=== PATIENT | male | born 1970 | race Caucasian/White ===

== ENCOUNTER 2019-08-26 21:09 | Observation (INO) | payer MEDICARE, OTHER ==
[~2019-08-26] VITALS: Ht 177.8 cm; Wt 121.4 kg
--- OUTSIDE RECORDS SUMMARY | ~2019-08-26 | XMS | Encounter Summary ---
Demographics + + + | Address | [address] | | | [place] [address] | + + + | Home Phone | | + + + | Preferred Language | Unknown | + + + | Marital Status | Single | + + + | Buddhism Affiliation | Unknown | + + + | Race | White | + + + | Ethnic Group | Not or | + + + Author + + + | Author | [facility] | + + + | Organization | [facility] | + + + | Address | Unknown | + + + | Phone | Unavailable | + + + Support + + + + + | Name | Relationship | Address | Phone | + + + + + | Janusz Perez | ECON | UNKNOWN | | | | | [place] [address] | | + + + + + Care Team Providers + +------+ + | Care Sap Data Architect Name | Role | Phone | + +------+ + PCP | Unavailable | + +------+ + Encounter Details +--------+ + + + + | Date | Type | Department | Care Team | Description | +--------+ + + + + | 01/22/ | Office | General Internal | Note, Outpatient | Progress Note | | 1996 | Visit-Trans | Medicine [address] | Clinic | | | | cribed | [address] | | | | | | Mailcode: [id number] | | | | | | Outpatient Clinic | | | | | | [facility], [address] | | | | | | [place], [place] | | | | | | [address] | | | | | | [phone] | | | +--------+ + + + + Social History + +-------+ +--------+------+ | Tobacco Use | Types | Packs/Day | Years | Date | | | | | Used | | + +-------+ +--------+------+ | Never Assessed | | | | | + +-------+ +--------+------+ + + + | Sex Assigned at | Date Recorded | | | | + + + | Not on file | | + + + + + + + | Job Start Date | Occupation | Industry | + + + + | Not on file | Not on file | Not on file | + + + + + + + + | Travel History | Travel Start | Travel End | + + + + + + | No recent travel history available. | + + documented as of this encounter Progress Notes Interface, Ios Developer In - 06/19/2006 5:08 AM PST CLINIC DATE: 01/22/97 Ricky is a patient from [place] who was injured in a rodeo in [place] 1 weeks ago. He said that he was bucked off a horse and landed on his left shoulder. He has had pain since that time. Apparently he was seen at a hospital where x-rays were taken showing a Grade III AC joint separation. He wanted to have a second opinion, and has come here. He says his pain is improving, but he still is painful and doesn't like the cosmetic appearance. He says his strength is decreased. He claims he has had a previous injury to this shoulder, and also dislocated but popped it in himself. He said he refused treatment at the [place] from the doctor at the rodeo, and went immediately to the hospital. PHYSICAL EXAMINATION: Forward flexion is 140 actively, abduction is 120, internal rotation is just above his belt, external rotation is 75 degrees. He has negative apprehension sign, negative Sulcus sign. He has an obvious Grade III AC joint separation. He is tender to palpation over the distal clavicle, and his strength is somewhat diminished secondary to pain. X-RAYS: We took new x-rays today. He has a Grade III AC joint separation as compared to the right side. IMPRESSION: Left Grade III AC joint separation. PLAN: I advised Ricky, since he is almost two weeks out and improving rapidly, to just see how he does here over the next month. I will see him back in one month. If he still wants to have surgery, I would recommend a De León-Rosenbaum procedure. Ricky says he is leaning in that direction. He is right hand dominant, but does a lot of heavy work, and doesn't plan to give up rodeo anytime soon, and feels he wants to have this done in the future. Ulisses Cruz M.D. Adjunct Automotive Assembler, Department of Orthopaedics and Rehabilitation LAURYN/shawnee P cc: Surgery Scheduling documented in this encounter Plan of Treatment Not on filedocumented as of this encounter Visit Diagnoses Not on filedocumented in this encounter"
--- OUTSIDE RECORDS SUMMARY | ~2019-08-26 | XMS | Encounter Summary ---
Demographics + + + | Address | [address] | | | [place] [address] | + + + | Home Phone | | + + + | Preferred Language | Unknown | + + + | Marital Status | Single | + + + | Sabianism Affiliation | Unknown | + + + | Race | Unknown | + + + | Ethnic Group | Unknown | + + + Author + + + | Author | [facility] | | | and [facility] | + + + | Organization | [facility] | | | and [place] | + + + | Address | Unknown | + + + | Phone | Unavailable | + + + Care Team Providers + +------+ + | Care Work Checker Name | Role | Phone | + +------+ + PCP | Unavailable | + +------+ + Encounter Details +--------+ + + + + | Date | Type | Department | Care Team | Description | +--------+ + + + + | 01/13/ | Hospital | [facility] | Sharonda Sharma MD | Unspecified Disorder | | 2008 - | Encounter | [address] | [address] | [address] | | | | [address] | [place] [address] | | | 01/20/ | | [place], [place] | [phone] | | | 2008 | | [address] | | | | | | [phone] | | | +--------+ + + + [...] + + documented as of this encounter Plan of Treatment Not on filedocumented as of this encounter Visit Diagnoses + + | Diagnosis | + + | Unspecified disorder of esophagus | + + documented in this encounter"
--- OUTSIDE RECORDS SUMMARY | ~2019-08-26 | XMS | Clinical Summary ---
Demographics + + + | Address | [address] | | | [place] [address] | + + + | Home Phone | | + + + | Preferred Language | Unknown | + + + | Marital Status | Single | + + + | Anglican Affiliation | Unknown | + + + | Race | Unknown | + + + | Ethnic Group | Unknown | + + + Author + + + | Author | [facility] (Historical as of | | | 12-16-18) | + + + | Organization | [facility] (Historical as of | | | 12-16-18) | + + + | Address | Unknown | + + + | Phone | Unavailable | + + + Support +--------+ +---------+ + | Name | Relationship | Address | Phone | +--------+ +---------+ + | One,No | ECON | Unknown | Unavailable | +--------+ +---------+ + Care Team Providers + +------+ + | Care Coin Machine Assembler Name | Role | Phone | + +------+ + | Dr. Brant | PP | Unavailable | + +------+ + Allergies Not on File Current Medications Not on file Active Problems Not on file Social History + +-------+ +--------+------+ | Tobacco [...] on file | | + + + Plan of Treatment Not on file Results Not on filefrom Last 3 Months"
--- OUTSIDE RECORDS SUMMARY | ~2019-08-26 | XMS | Encounter Summary ---
Demographics + + + | Address | [address] | | | [place] [address] | + + + | Home Phone | | + + + | Preferred Language | Unknown | + + + | Marital Status | Single | + + + | Zoroastrianism Affiliation | Unknown | + + + | Race | White | + + + | Ethnic Group | Not or | + + + Author + + + | Author | [facility] | + + + | Organization | [facility] | + + + | Address | Unknown | + + + | Phone | Unavailable | + + + Support + + + + + | Name | Relationship | Address | Phone | + + + + + | Janusz Perez | ECON | UNKNOWN | | | | | [place] [address] | | + + + + + Care Team Providers + +------+ + | Care Insurance Agent Name | Role | Phone | + +------+ + PCP | Unavailable | + +------+ + Encounter Details +--------+ + + + + | Date | Type | Department | Care Team | Description | +--------+ + + + + | 01/21/ | ED Progress | Emergency Medicine | Report, Emergency | ED Progress Note | | 1996 | | [address] | Services | | | | Note-Transc | [address] | | | | | [place] | [place], [place] | | | | | | [address] | | | +--------+ + + + [...]
--- OUTSIDE RECORDS SUMMARY | ~2019-08-26 | XMS | Encounter Summary ---
Demographics + + + | Address | [address] | | | [place] [address] | + + + | Home Phone | | + + + | Preferred Language | Unknown | + + + | Marital Status | Single | + + + | Jew Affiliation | Unknown | + + + | Race | White | + + + | Ethnic Group | Not or | + + + Author + + + | Author | [facility] | + + + | Organization | [facility] | + + + | Address | Unknown | + + + | Phone | Unavailable | + + + Support + + + + + | Name | Relationship | Address | Phone | + + + + + | Janusz Perez | ECON | UNKNOWN | | | | | [place] [address] | | + + + + + Care Team Providers + +------+ + | Care Cheese Tester Name | Role | Phone | + +------+ + PCP | Unavailable | + +------+ + Encounter Details +--------+ + + + + | Date | Type | Department | Care Team | Description | +--------+ + + + + | 01/21/ | Results | Emergency Medicine | Celio Cabral MD | | | 1996 | Only | [address] | [address] | | | | | [address] | [facility] | | | | | [place], [place] | [place], [place] | | | | | [address] | [address] | | | | | | [phone] | | | | | | | | +--------+ + + + [...] Not on filedocumented as of this encounter Procedures + +--------+ + + + | Procedure Name | Priori | Date/Time | Associated Diagnosis | Comments | | | ty | | | | + +--------+ + + + | SHOULDER, 3 VIEWS | Urgent | 01/21/1997 | | Results for this | | | | 7:25 PM | | procedure are in the | | | | PDT | | results section. | + +--------+ + + + documented in this encounter Results SHOULDER, 3 VIEWS (01/21/1997 7:25 PM PDT) + + + + + + | Component | Value | Ref Range | Performed | Pathologist | | | | | At | Signature | + + + + + + | SHOULDER, 3 | Radiologist 1: CATHY, | | | | | VIEWS | Cristo MORATAYA-Radiologist | | | | | | 2: HOOD MORGAN, | | | | | | RICKY HENRY | | | | | | | | | | | | | | | | | | [id number] LEFT | | | | | | SHOULDER, 3 VIEWS: | | | | | | 01/21/97 at 1925 hrs | | | | | | Dictated: 01/22/97 No | | | | | | previous films are | | | | | | available for | | | | | | comparison. FINDINGS: | | | | | | There is approximately | | | | | | one-half shaft width | | | | | | superiordisplacement of | | | | | | the distal clavicle | | | | | | relative to the acromion | | | | | | process.The | | | | | | coracoclavicular | | | | | | distance measures 16 mm. | | | | | | No fractures | | | | | | areidentified. The | | | | | | glenohumeral joint is | | | | | | maintained. IMPRESSION: | | | | | | Acromioclavicular and | | | | | | probable | | | | | | coracoclavicular | | | | | | separation. END OF | | | | | | IMPRESSION: | | | | + + + + + + + + | Specimen | + + | | + + + +---------+ + + | Performing | Address | City/State/Zipcode | Phone Number | | Organization | | | | + +---------+ + + | [facility] | | | | | [facility] | | | | + +---------+ + + documented in this encounter Visit Diagnoses Not on filedocumented in this encounter"
--- OUTSIDE RECORDS SUMMARY | ~2019-08-26 | XMS | Encounter Summary ---
Demographics + + + | Address | [address] | | | [place] [address] | + + + | Home Phone | | + + + | Preferred Language | Unknown | + + + | Marital Status | Single | + + + | Sabianism Affiliation | Unknown | + + + | Race | Unknown | + + + | Ethnic Group | Unknown | + + + Author + + + | Author | [facility] | | | and [facility] | + + + | Organization | [facility] | | | and [place] | + + + | Address | Unknown | + + + | Phone | Unavailable | + + + Care Team Providers + +------+ + | Care Business Services Clerk Name | Role | Phone | + +------+ + PCP | Unavailable | + +------+ + Encounter Details +--------+ + + + + | Date | Type | Department | Care Team | Description | +--------+ + + + + | 01/13/ | Hospital | [facility] | Sharonda Sharma MD | Unspecified Disorder | | 2008 - | Encounter | [address]VERSION [address] | [address] | [address] | | | | [address] | [place] [address] | | | 01/20/ | | [place], [place] | [phone] | | | 2008 | | [address] | | | | | | [phone] | | | +--------+ + + + [...]
--- OUTSIDE RECORDS SUMMARY | ~2019-08-26 | XMS | Encounter Summary ---
Demographics + + + | Address | [address] | | | [place] [address] | + + + | Home Phone | | + + + | Preferred Language | Unknown | + + + | Marital Status | Single | + + + | Catholic Affiliation | Unknown | + + + | Race | White | + + + | Ethnic Group | Not or | + + + Author + + + | Organization | Unknown | + + + | Address | Unknown | + + + | Phone | Unavailable | + + + Support + + + + + | Name | Relationship | Address | Phone | + + + + + | Janusz Perez | ECON | UNKNOWN | | | | | [place] [address] | | + + + + + Care Team Providers + +------+ + | Care Hydraulic Spinner Name | Role | Phone | + +------+ + PCP | Unavailable | + +------+ + Encounter Details +--------+ + + + + | Date | Type | Department | Care Team | Description | +--------+ + + + + | 01/22/ | Results | | Other, Faculty | | | 1996 | Only | | [phone] | | +--------+ + + + + [...] | + +--------+ + + + | X-RAY BILAT AC | Routin | 01/22/1997 | | Results for this | | JOINTS WWO WEIGHTS | e | 3:35 PM | | procedure are in the | | | | PDT | | results section. | + +--------+ + + + documented in this encounter Results AC JOINTS BILAT W WT DISTRACT (01/22/1997 3:35 PM PDT) + + + + + + | Component | Value | Ref Range | Performed | Pathologist | | | | | At | Signature | + + + + + + | BILAT AC | Radiologist 1: HEATH, | | | | | JOINTS WWO | Cristo DORAN, | | | | | WEIGHTS | RICKY E | | | | | | | | | | | | | | | | | | AP VIEWS OF | | | | | | THE ACROMIOCLAVICULAR | | | | | | JOINT WITH AND WITHOUT | | | | | | WEIGHTBEARING: | | | | | | 01/22/97 AT 1535 HOURS | | | | | | Dictated: 01/24/97 | | | | | | COMPARISON: There are | | | | | | no prior studies | | | | | | available for | | | | | | comparison. FINDINGS: | | | | | | There is separation of | | | | | | the left | | | | | | acromioclavicular | | | | | | jointwith superior | | | | | | displacement of the | | | | | | distal clavicle. There | | | | | | is nosignificant | | | | | | difference between | | | | | | weight and non-weight | | | | | | bearing views.The | | | | | | glenohumeral joint is | | | | | | maintained and there are | | | | | | no fractures. The right | | | | | | acromioclavicular joint | | | | | | is maintained with no | | | | | | evidence ofseparation on | | | | | | weight bearing. The | | | | | | glenohumeral joint is | | | | | | unremarkableand there | | | | | | are no fractures. | | | | | | IMPRESSION: Left | | | | | | acromioclavicular joint | | | | | | separation. Normal | | | | | | rightacromioclavicular | | | | | | joint. END OF | | | | | | IMPRESSION: | | | | + + + + + + + + | Specimen | + + | | + + + + + | Narrative | Performed At | + + + | Ordered mary GILMAN | | + + + + +---------+ + + | Performing | Address | City/State/Zipcode | Phone Number | | Organization | | | | + +---------+ + + | [facility] | | | | | RADIOLOGY | | | | + +---------+ + + documented in this encounter Visit Diagnoses Not on filedocumented in this encounter"
--- OUTSIDE RECORDS SUMMARY | ~2019-08-26 | XMS | Clinical Summary ---
Demographics + + + | Address | [address] | | | [place] [address] | + + + | Home Phone | | + + + | Preferred Language | Unknown | + + + | Marital Status | Single | + + + | Jain Affiliation | Unknown | + + + | Race | Unknown | + + + | Ethnic Group | Unknown | + + + Author + + + | Author | [facility] | | | and [facility] | + + + | Organization | [facility] | | | and [place] | + + + | Address | Unknown | + + + | Phone | Unavailable | + + + Care Team Providers + +------+ + | Care Legal Instructor Name | Role | Phone | + +------+ + PCP | Unavailable | + +------+ + Allergies Not on File Medications Not on file Active Problems Not [...] recent travel history available. | + + Last Filed Vital Signs Not on file Plan of Treatment + + + + + | Health Maintenance | Due Date | Last Done | Comments | + + + + + | Vaccine: | | | | | Dtap/Tdap/Td (1 - | 3 | | | | Tdap) | | | | + + + + + | Vaccine: Influenza | | | | | (Season Ended) | 0 | | | + + + + + Results Not on filefrom Last 3 Months"
--- OUTSIDE RECORDS SUMMARY | ~2019-08-26 | XMS | Encounter Summary ---
Demographics + + + | Address | [address] | | | [place] [address] | + + + | Home Phone | | + + + | Preferred Language | Unknown | + + + | Marital Status | Single | + + + | Moravian Affiliation | Unknown | + + + | Race | Unknown | + + + | Ethnic Group | Unknown | + + + Author + + + | Author | [facility] | | | and [facility] | + + + | Organization | [facility] | | | and [place] | + + + | Address | Unknown | + + + | Phone | Unavailable | + + + Care Team Providers + +------+ + | Care Pattern And Chain Maker Name | Role | Phone | + +------+ + PCP | Unavailable | + +------+ + Encounter Details +--------+ + + + + | Date | Type | Department | Care Team | Description | +--------+ + + + + | 01/13/ | Hospital | [facility] | Sharonda Sharma MD | Unspecified Disorder | | 2008 - | Encounter | [address]VERSION [address] | [address] | [address] | | | | [address] | [place] [address] | | | 01/20/ | | [place], [place] | [phone] | | | 2008 | | [address] | | | | | | [phone] | | | +--------+ + + + [...]
--- OUTSIDE RECORDS SUMMARY | ~2019-08-26 | XMS | Clinical Summary ---
Demographics + + + | Address | [address] | | | [place] [address] | + + + | Home Phone [...] | | | | | [place] [address] | | + + + + + Care Team Providers + +------+ + | Care Diesel Locomotive Crane Operator Name | Role | Phone | + +------+ + PCP | Unavailable | + +------+ + Source Comments AUDREY is fully live on both [facility] and [facility] Allergies Not on File Medications Not on [...] | + + + + + | Influenza (Flu) | | | | | vaccination (#1) | 9 | | | + + + + + | Pneumococcal | Aged Out | | No longer eligible | | vaccination | | | based on patient's | | | | | age to complete this | | | | | topic | + + + + + Results Not on filefrom Last 3 Months"
--- OUTSIDE RECORDS SUMMARY | ~2019-08-26 | XMS | Encounter Summary ---
Demographics + + + | Address | [address] | | | [place] [address] | + + + | Home Phone | | + + + | Preferred Language | Unknown | + + + | Marital Status | Single | + + + | Episcopal Affiliation | Unknown | + + + [...] | | | | | [place] [address] | | + + + + + Care Team Providers + +------+ + | Care Loan Teller Name | Role | Phone | + +------+ + PCP | Unavailable | + +------+ + Encounter Details +--------+ + + + + | Date | Type | Department | Care Team | Description | +--------+ + + + + | 01/22/ | Results | | Other, Faculty | | | 1996 | Only | | [phone] | | +--------+ + + + + [...]
--- OUTSIDE RECORDS SUMMARY | ~2019-08-26 | XMS | Encounter Summary ---
Demographics + + + | Address | [address] | | | [place] [address] | + + + | Home Phone | | + + + | Preferred Language | Unknown | + + + | Marital Status | Single | + + + | Pentecostalism Affiliation | Unknown | + + + | Race | White | + + + | Ethnic Group | Not or | + + + Author + + + | Author | [facility] | + + + | Organization | [facility] | + + + | Address | Unknown | + + + | Phone | Unavailable | + + + Support + + + + + | Name | Relationship | Address | Phone | + + + + + | Janusz Perez | ECON | UNKNOWN | | | | | [place] [address] | | + + + + + Care Team Providers + +------+ + | Care Ramp Agent Name | Role | Phone | [...] | | | [address] | [facility] | | | | | [place], [place] | [place], [place] | | | | | [address] | [address] | | | | | | [phone] | | | | | | | [...]
--- OUTSIDE RECORDS SUMMARY | ~2019-08-26 | XMS | Encounter Summary ---
Demographics + + + | Address | [address] | | | [place] [address] | + + + | Home Phone | | + + + | Preferred Language | Unknown | + + + | Marital Status | Single | + + + | Confucianism Affiliation | Unknown | + + + | Race | White | + + + | Ethnic Group | Not or | + + + Author + + + | Author | [facility] | + + + | Organization | [facility] | + + + | Address | Unknown | + + + | Phone | Unavailable | + + + Support + + + + + | Name | Relationship | Address | Phone | + + + + + | Janusz Perez | ECON | UNKNOWN | | | | | [place] [address] | | + + + + + Care Team Providers + +------+ + | Care Manufacturing Systems Engineer Name | Role | Phone | + [...] Clinic | | | | | | [facility], [address] | | | | | | [place], [place] | | | | | | [address] | | | | | | [phone] | | | +--------+ + + + [...] as of this encounter Progress Notes Interface, Sports Analyst In - 06/19/2006 5:08 AM PST CLINIC DATE: 01/22/97 Ricky is a patient from [place] who was injured in a rodeo in [place] 1 weeks ago. He said that he [...] He said he refused treatment at [facility] from the doctor at the [place], and [...] in the future. Ulisses Cruz M.D. Adjunct Lotus Notes Developer, Department of Orthopaedics and Rehabilitation LAURYN/shawnee P cc: Surgery Scheduling documented in this encounter Plan of Treatment Not on filedocumented as of this encounter Visit Diagnoses Not on filedocumented in this encounter"
--- OUTSIDE RECORDS SUMMARY | ~2019-08-26 | XMS | Encounter Summary ---
Demographics + + + | Address | [address] | | | [place] [address] | + + + | Home Phone [...] | | | | | [place] [address] | | + + + + + Care Team Providers + +------+ + | Care Glass Wool Blanket Machine Feeder Name | Role | Phone | + +------+ + PCP | Unavailable | + +------+ + Encounter Details +--------+ + + + + | Date | Type | Department | Care Team | Description | +--------+ + + + + | 01/22/ | Results | | Other, Faculty | | | 1996 | Only | | [phone] | | +--------+ + + + + [...]
--- OUTSIDE RECORDS SUMMARY | ~2019-08-26 | XMS | Clinical Summary ---
Demographics + + + | Address | [address] | | | [place] [address] | + + + | Home Phone | | + + + | Preferred Language | Unknown | + + + | Marital Status | Single | + + + | Denominational Affiliation | Unknown | + + + | Race | Unknown | + + + | Ethnic Group | Unknown | + + + Author + + + | Author | [facility] | | | and [facility] | + + + | Organization | [facility] | | | and [place] | + + + | Address | Unknown | + + + | Phone | Unavailable | + + + Care Team Providers + +------+ + | Care Buffer Copper Name | Role | Phone | + [...]
--- OUTSIDE RECORDS SUMMARY | ~2019-08-26 | XMS | Encounter Summary ---
Demographics + + + | Address | [address] | | | [place] [address] | + + + | Home Phone [...] Author + + + | Author | [facility] | + + + | Organization | [facility] | + + + | Address | Unknown | + + + | Phone | Unavailable | + + + Support + + + + + | Name | Relationship | Address | Phone | + + + + + | Janusz Perez | ECON | UNKNOWN | | | | | [place] [address] | | + + + + + Care Team Providers + +------+ + | Care Net Coordinator Name | Role | Phone | + [...] | | | | | [address] | [place], [place] | | | | | | [address] | | | +--------+ + + + [...]
--- OUTSIDE RECORDS SUMMARY | ~2019-08-26 | XMS | Clinical Summary ---
Demographics + + + | Address | [address] | | | [place] [address] | + + + | Home Phone [...] | | | | | [place] [address] | | + + + + + Care Team Providers + +------+ + | Care Maintenance Leader Name | Role | Phone | + +------+ + PCP | Unavailable | + +------+ + Source Comments AUDRE[place] is fully live on both [facility] and [facility] In[facility] Allergies Not on File Medications Not on [...]
--- OUTSIDE RECORDS SUMMARY | ~2019-08-26 | XMS | Clinical Summary ---
Demographics + + + | Address | [address] | | | [place] [address] | + + + | Home Phone | | + + + | Preferred Language | Unknown | + + + | Marital Status | Single | + + + | Methodist Affiliation | Unknown | + + + [...] | | | | | [place] [address] | | + + + + + Care Team Providers + +------+ + | Care Mold Stamper Name | Role | Phone | + +------+ + PCP | Unavailable | + +------+ + Source Comments AUDREY is fully live on both [facility] Amb[facility] and [facility] InPatient.[facility] Allergies Not on File Medications Not [...]
--- OUTSIDE RECORDS SUMMARY | ~2019-08-26 | XMS | Encounter Summary ---
Demographics + + + | Address | [address] | | | [place] [address] | + + + | Home Phone | | + + + | Preferred Language | Unknown | + + + | Marital Status | Single | + + + | Evangelical Affiliation | Unknown | + + + | Race | White | + + + | Ethnic Group | Not or | + + + Author + + + | Author | [facility] | + + + | Organization | [facility] | + + + | Address | Unknown | + + + | Phone | Unavailable | + + + Support + + + + + | Name | Relationship | Address | Phone | + + + + + | Janusz Perez | ECON | UNKNOWN | | | | | [place] [address] | | + + + + + Care Team Providers + +------+ + | Care Oilseed Meat Presser Name | Role | Phone | + [...] | | | [address] | [facility] | | | | | [place] | [place] | | | | | [address] | [address] | | | | | | [phone] | | | | | | | [...]
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
--- OUTSIDE RECORDS SUMMARY | ~2019-08-26 | XMS | Clinical Summary ---
Demographics + + + | Address | [address] | | | [place] [address] | + + + | Home Phone [...] + | Author | [facility] (Historical as of | | | 12-16-18) | + + + | Organization | [facility] (Historical as of | | | 12-16-18) | + + + | Address | Unknown | + + + | Phone | Unavailable | + + + Support +--------+ +---------+ + | Name | Relationship | Address | Phone | +--------+ +---------+ + | One,No | ECON | Unknown | Unavailable | +--------+ +---------+ + Care Team Providers + +------+ + | Care Cereal Supervisor Name | Role | Phone | + [...]
--- OUTSIDE RECORDS SUMMARY | ~2019-08-26 | XMS | Encounter Summary ---
Demographics + + + | Address | [address] | | | [place] [address] | + + + | Home Phone | | + + + | Preferred Language | Unknown | + + + | Marital Status | Single | + + + | Restorationism Affiliation | Unknown | + + + | Race | White | + + + | Ethnic Group | Not or | + + + Author + + + | Author | [facility] | + + + | Organization | [facility] | + + + | Address | Unknown | + + + | Phone | Unavailable | + + + Support + + + + + | Name | Relationship | Address | Phone | + + + + + | Janusz Perez | ECON | UNKNOWN | | | | | [place] [address] | | + + + + + Care Team Providers + +------+ + | Care Toolmaker Grade Three Name | Role | Phone | + [...] | | | | | ozzie | [place], [place] | | | | | | [address] | | | +--------+ + + + [...]
--- OUTSIDE RECORDS SUMMARY | ~2019-08-26 | XMS | Clinical Summary ---
Demographics + + + | Address | [address] | | | [place] [address] | + + + | Home Phone | | + + + | Preferred Language | Unknown | + + + | Marital Status | Single | + + + | Shinto Affiliation | Unknown | + + + | Race | Unknown | + + + | Ethnic Group | Unknown | + + + Author + + + | Author | [facility] (Historical as of | | | 12-16-18) | + + + | Organization | [facility] (Historical as of | | | 12-16-18) | + + + | Address | Unknown | + + + | Phone | Unavailable | + + + Support +--------+ +---------+ + | Name | Relationship | Address | Phone | +--------+ +---------+ + | One,No | ECON | Unknown | Unavailable | +--------+ +---------+ + Care Team Providers + +------+ + | Care Straightening Machine Feeder Name | Role | Phone [...]
--- OUTSIDE RECORDS SUMMARY | ~2019-08-26 | XMS | Clinical Summary ---
Demographics + + + | Address | [address] | | | [place] [address] | + + + | Home Phone | | + + + | Preferred Language | Unknown | + + + | Marital Status | Single | + + + | Yazidi Affiliation | Unknown | + + + | Race | Unknown | + + + | Ethnic Group | Unknown | + + + Author + + + | Author | [facility] | | | and [facility] | + + + | Organization | [facility] | | | and [facility] | + + + | Address | Unknown | + + + | Phone | Unavailable | + + + Care Team Providers + +------+ + | Care Control Officer Name | Role | Phone | + [...]
[~2019-08-26 21:09] MED LIST: CLARITIN10 MG PO; CLINDAGEL40 ML TOP; CLOTRIMAZOLE30 ML TOP; DIPHENHYDRAMINE25 MG; FENOFIBRATE54 MG PO; GABAPENTIN300 MG PO; HALOPERIDOL2 MG PO; LAMICTAL200 MG PO; LEVOTHYROXINE88 MCG PO; LIPITOR40 MG PO; LITHIUM CARBON450 MG PO; NORVASC5 MG PO; PANTOPRAZOLE SO40 MG PO; QUETIAPINE FUM200 M1 PO; SYNTHROID75 MCG PO; TYLENOL325 MG PO; VENTOLIN HFA18 GM INH
[2019-08-26] MEDS ORDERED: LAMOTRIGINE200 MG PO (21:53)
[2019-08-26] MEDS ORDERED: LITHIUM CARBON450 MG PO (21:56)
[2019-08-26] MEDS ORDERED: QUETIAPINE FUM300 MG PO (21:57)
[2019-08-26] MEDS ORDERED: KETOCONAZOLE15 GM TOP (21:58)
[2019-08-26] MEDS ORDERED: FAMOTIDINE20 MG PO (22:00)
[2019-08-27] MEDS ORDERED: ATORVASTATIN CA20 MG PO (14:42)
[2019-08-27] MEDS ORDERED: HALOPERIDOL5 MG PO (14:45)
[2019-08-27] MEDS ORDERED: GABAPENTIN800 MG PO (14:45)
[2019-08-27] MEDS ORDERED: AMLODIPINE BESY10 MG PO (14:47)
[2019-08-27] MEDS ORDERED: OCEAN104 ML NAS (14:53)
[2019-08-27] MEDS ORDERED: HIBICLENS118 ML TOP (14:54)
[2019-08-27] MEDS ORDERED: PREPARATION H1 EAC3 PR (14:55)
[2019-08-27] MEDS ORDERED: QUETIAPINE FUM200 MG PO (14:56)
[2019-08-27] MEDS ORDERED: EMERGEN-C 1,01000 MG PO (14:57)
[2019-08-27] MEDS ORDERED: HYDROCORTISONE30 G1 TOP (15:01)
--- NOTE | 2019-08-28 08:40 | HP ---
[facility] [address] [place], [place] [address] Signed ADMISSION DATE: 08/26/2019 REASON FOR ADMISSION: Presumed small bowel obstruction. HISTORY OF PRESENT ILLNESS: This 48-year-old white man lives in an Adult Care Facility and is accompanied by a health workers at this time. He presented to the emergency room last night and was evaluated by Dr. Kirkland at approximately 10:00 or 11:00 p.m. Unfortunately, the emergency room notes are inadequate and somewhat commingled with another the patient's report as is noted. In general terms, he had nausea and vomiting and sharp constant pain throughout the abdomen. He had no bowel movement, though had been previously having bowel movements, which were normal. A CT scan was performed in the emergency room in addition to a chest x-ray. The chest x-ray showed nasogastric tube that had been placed extending into the stomach, but no cardiopulmonary abnormality otherwise. CT scan of the abdomen showed dilated loops of small bowel consistent with small bowel obstruction and in the distal most portion of the small bowel. Indeed, the small bowel was considered to be and narrow caliber at the ileocecal valve. There is mesenteric edema of the proximal small bowel mesentery. Multiple diverticula were noted in the sigmoid and left colon. The cecal wall was thickened. The appendix was normal. He was admitted and given nasogastric tube decompression, IV fluids and so forth and is much improved, and he has had some flatus. The nasogastric tube is putting out bilious fluid. PAST MEDICAL HISTORY: Includes mental deficiency of unknown type. He has also had diverticulitis in the past. He is known to have an umbilical hernia, which is asymptomatic. His medications are listed and the veracity of them are I am uncertain of that at present given the issue with his emergency room note; however, medicine reconciliation in his chart shows an allergy to lithium, sulfur medication, chlorpromazine (Thorazine), and Mellaril. MEDICATIONS: His medications appear to include: 1. Amlodipine. 2. Atorvastatin. 3. Gabapentin. 4. Haloperidol. 5. Lamotrigine. 6. Synthroid. 7. [place]. Electronically Signed By: KATHI TSANLEY MD 08/28/19 0840 PATIENT NAME: KAYLIE CORTES HISTORY AND PHYSICAL DATE OF : 72 REPORT #: [id number] PHYSICIAN: KATHI STANLEY MD PCP: STEPHANIE DORSEY MD REPORT IS CONFIDENTIAL AND NOT TO BE RELEASED WITHOUT AUTHORIZATION [facility] [address] [place], [place] [address] Signed 8. Quetiapine. 9. Fluticasone and hydrocortisone cream. REVIEW OF SYSTEMS: He currently denies abdominal pain. He has no psychologic distress either. He is accompanied by a caregiver. PHYSICAL EXAMINATION: GENERAL: A somewhat obese white man, who is cooperative and oriented well and appropriate and verbalizes easily. NECK: Trachea is midline. CHEST: Shows normal respiratory excursion. Pulse is regular. ABDOMEN: Obese, but soft and scaphoid and nondistended. There is a hernia at the umbilicus that is easily reducible. He has no focal tenderness at this time. EXTREMITIES: Show no clubbing, cyanosis, or edema. LAB STUDIES: From last night showed white count of 16.0, hematocrit of 49.7, and platelets of 222,000. Chem profile essentially normal. Creatinine 1.33. Liver enzymes normal. Lipase is normal at 34. Tox screen shows lithium level of 0.5, normal 0.5-1.5. Urine appears normal. IMAGING DATA: Review of his abdominal CT is undertaken. The coronal view does show proximal distended loops of small bowel with relative impediment of apparent passage of ileal contents into the cecum. ASSESSMENT: The patient has still possibly an incomplete and resolving small bowel obstruction related to the ileocecal process. Thickened cecum and ileocecal valve are noted. He is unlikely to have Crohn disease per se, but more likely a neoplasm. Consideration is made for a colonoscopy to better characterize this problem. A bowel prep would be necessary, however. From it now, we will keep with nasogastric tube decompression and consider a gentle prep to allow for clearance of the obstruction versus additional imaging, which may more reasonably characterize the relative obstruction. We will allow liquids for comfort measures at this time. Kathi Stanley MD Electronically Signed By: KATHI STANLEY MD 08/28/19 0840 PATIENT NAME: KAYLIE CORTES HISTORY AND PHYSICAL DATE OF : 72 REPORT #: [id number] PHYSICIAN: KATHI STANLEY MD PCP: STEPHANIE DORSEY MD REPORT IS CONFIDENTIAL AND NOT TO BE RELEASED WITHOUT AUTHORIZATION [address] [address] Signed MADELEINE/PEGGY /[id number] cc: Khang Kirkland MD Copies: KHANG KIRKLAND MD ~ Electronically Signed By: KATHI STANLEY MD 08/28/19 0840 PATIENT NAME: KAYLIE CORTES HISTORY AND PHYSICAL DATE OF : 72 REPORT #: [id number] PHYSICIAN: KATHI STANLEY MD PCP: STEPHANIE DORSEY MD REPORT IS CONFIDENTIAL AND NOT TO BE RELEASED WITHOUT AUTHORIZATION
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
== END 2019-08-28 11:05 | disposition home or self-care (01) ==
LOC: ED 21:09 → MS 21:10
PROVIDERS: ADMIT Surgery
DX: K56.609 Unspecified intestinal obstruction, unspecified as to partial versus complete obstruction (principal); F20.9 Schizophrenia, unspecified; I10 Essential (primary) hypertension; K21.9 Gastro-esophageal reflux disease without esophagitis; B35.6 Tinea cruris; E78.5 Hyperlipidemia, unspecified; Z79.899 Other long term (current) drug therapy; S92.352A Displaced fracture of fifth metatarsal bone, left foot, initial encounter for closed fracture; Z88.8 Allergy status to other drugs, medicaments and biological substances; W50.0XXA Accidental hit or strike by another person, initial encounter
CPT/HCPCS: 36415; 71045; 74018; 74177; 74250; 80053; 80178; 81001; 83690; 85025; 96361; 96372; 96375; 96376; G0378; J0694; J1644; J2060; J2270; J2405; J3010; J7030; J7121; Q9967

== ENCOUNTER 2019-10-12 06:00 | Day surgery (SDC) | payer MEDICARE, OTHER ==
--- NOTE | 2019-10-03 17:10 | NUR ---
PT TO HAVE COVID TEST AT [facility]. SPOKE WITH DR STANLEY'S OFFICE THEY WILL SEND ORDER FOR COVID.
[~2019-10-12] VITALS: Ht 177.8 cm; Wt 120.7 kg
[~2019-10-12 06:00] MED LIST changes: +AMLODIPINE BESY10 MG PO; +ATORVASTATIN CA20 MG PO; +EMERGEN-C 1,01000 MG PO; +FAMOTIDINE20 MG PO; +GABAPENTIN800 MG PO; +HALOPERIDOL5 MG PO; +HIBICLENS118 ML TOP; +HYDROCORTISONE30 G1 TOP; +KETOCONAZOLE15 GM TOP; +LAMOTRIGINE200 MG PO; +OCEAN104 ML NAS; +PREPARATION H1 EAC3 PR; +QUETIAPINE FUM200 MG PO; +QUETIAPINE FUM300 MG PO
--- NOTE | 2019-10-12 08:36 | NUR ---
10/12/19 0836 Lucero Dan 0828- PT TO PACU IN LL POSITION. EYES CLOSED. RESPONDS APPROPRIATEY TO VERBAL STIMULATION. BREATHING EASY AND UNLABORED SPO2 >95% ON RA. ETCO2 40. DENIES PAIN, NAUSEA OR DIZZINESS. 0832- PT OPENS EYES TO VOICE. CONTINUES TO DENY PAIN. BREATHING EASY AND UNLABORED SPO2 >90% ON RA. PT ENCOURAGED TO PASS GAS. DENIES DIZZINESS OR NAUSEA.
--- NOTE | 2019-10-12 08:48 | NUR ---
PT ALERT, ORIENTED AND HAS SUPPORT FROM A FRIEND. PTS' FIRST SCOPE, QUESTIONS ASKED AND ANSWERED. PT REQUESTED PRAYER AND WILL BE AVAILABLE
--- NOTE | 2019-10-15 09:45 | OR ---
[facility] [address] [place], [place] [address] Signed DATE OF OPERATION: 10/12/2019 SURGEON: Kathi Stanley MD PREOPERATIVE DIAGNOSES: 1. History of small bowel obstruction, August 26, 2019, questionable terminal ileum lesion accounting for obstruction. 2. Mental deficiency. 3. Known diverticular disease. POSTOPERATIVE DIAGNOSES: 1. Diverticulosis of sigmoid and left colon. 2. Polyps x2 (excised). 3. Visualization of the ileocecal valve and inability to intubate ileocecal valve. PROCEDURE: Total colonoscopy to cecum with cold morcellation polypectomy x2 and biopsy of ileocecal valve. ANESTHESIA: Intravenous sedation propofol infusion, Kevin Villegas CRNA. INDICATION: This 49-year-old white man has mental deficiency and is in the institution where he is cared for. He was admitted to the hospital in late July and consulted by me on August 26, 2019 for findings of small bowel obstruction. He was found on CT scan to have some possibility of ileocecal valve lesion accounting for the obstruction. Obstruction resolved with conservative measures. He is known to have diverticulosis from the past. He has had no symptoms or signs of small bowel obstruction recently. He is here for colonoscopy in hopes of intubating the ileum to identify possible obstructive pathology. The risks of bleeding, infection, and perforation are well known by all including his caretakers and he is here for that purpose. FINDINGS: The prep was quite good. Complete colonoscopy was undertaken to the cecum. Multiple attempts to obtain true intubation of the ileum were unsuccessful due to redundancy of the colon. He had numerous diverticula of the sigmoid and left colon. He had two polyps, both of which were excised, one in the splenic flexure area and the other in the right colon. Electronically Signed By: KATHI STANLEY MD 10/12/19 145 Electronically Signed By: KATHI STANLEY MD 10/16/19 1011 PATIENT NAME: KAYLIE CORTES OPERATIVE REPORT DATE OF : 72 REPORT #: [id number] PHYSICIAN: KATHI STANLEY MD PCP: DAYAMI COX MD REPORT IS CONFIDENTIAL AND NOT TO BE RELEASED WITHOUT AUTHORIZATION [facility] [address] [place], [place] [address] Signed DESCRIPTION OF PROCEDURE: The patient was brought into the endoscopy suite and placed in lateral decubitus position, given intravenous sedation with propofol infusional technique by the home health aid. Digital rectal examination was normal. An Olympus video colonoscope was passed in the rectum and manipulated into the rectosigmoid where numerous diverticula were seen in the sigmoid colon. Scope was advanced further and at the proximal descending colon or splenic flexure, a sessile polyp was noted, this was not far from the orifice of a diverticulum. This was excised with cold morcellation technique. The scope was advanced beyond this to the transverse colon and hepatic flexure and ultimately the right colon where a small polyp of similar size was noted too was excised with cold morcellation technique. Advancement of the scope allowed for visualization of the cecum and the ileum. The redundant colon was noted. Various maneuvers were used to advance the scope to allow for intubation of the ileum including biopsy forcep "pull up" technique. Abdominal wall stabilization, multiple other interventions were undertaken, but the scope could never truly align to pass into the ileocecal valve unfortunately. Biopsy was taken of the ileocecal valve. The scope was then withdrawn and examination throughout showed no other findings of concern. Retroflexed view was normal as well. The scope was removed and the patient was taken to the recovery room in good condition. CONCLUDING DIAGNOSIS: 1. Extensive diverticular disease of sigmoid and left colon. 2. Polyps x2. 3. Inability to intubate the ileum proper. PLAN: Consideration might be made for a GI contrast CT scan with attention to the terminal ileum. Admittedly, he is currently symptom free and the finding on CT scan may have been artifactual in fact. He will return to the ongoing care of Dr. Cox. MD MADELEINE William/REMBERTOL /[id number] Electronically Signed By: KATHI STANLEY MD 10/12/19 1451 Electronically Signed By: KATHI STANLEY MD 10/16/19 1011 PATIENT NAME: KAYLIE CORTES OPERATIVE REPORT DATE OF : 72 REPORT #: [id number] PHYSICIAN: KATHI STANLEY MD PCP: DAYAMI COX MD REPORT IS CONFIDENTIAL AND NOT TO BE RELEASED WITHOUT AUTHORIZATION [address] [address] Signed cc: Dayami Cox MD Copies: ~ Electronically Signed By: KATHI STANLEY MD 10/12/19 1451 Electronically Signed By: KATHI STANLEY MD 10/16/19 1011 PATIENT NAME: TIFFANIE HENRYKAYLIE OPERATIVE REPORT DATE OF : 72 REPORT #: [id number] PHYSICIAN: KATHI STANLEY MD PCP: DAYAMI COX MD REPORT IS CONFIDENTIAL AND NOT TO BE RELEASED WITHOUT AUTHORIZATION
--- NOTE | 2019-10-16 15:16 | PATH ---
[facility] [address] [place], [place] [address] Signed SPECIMEN(S): A SPLENIC FLEXURE POLYP SPECIMEN(S): B HEPATIC FLEXURE POLYP SPECIMEN(S): C ILEOCECAL VALVE SPECIMEN SOURCE: A. SPLENIC FLEXURE POLYP B. HEPATIC FLEXURE POLYP C. ILEOCECAL VALVE CLINICAL HISTORY: Small bowel obstruction. Postop Diagnosis: Polyps x 2, diverticulosis. MICROSCOPIC DESCRIPTION: Histologic sections of all submitted blocks are examined by light microscopy. These findings, together with the gross examination, support the pathologic diagnosis. FINAL PATHOLOGIC DIAGNOSIS: A. Colon, splenic flexure, polyp, polypectomy: - Fragment of ulcer. - Fragment of colonic mucosa with no histopathologic abnormality. - Negative for dysplasia or malignancy. - See comment. B. Colon, hepatic flexure, polyp, polypectomy: - Tubular adenoma. - Negative for high-grade dysplasia or malignancy. C. Colon, ileocecal valve, biopsy: - Colonic mucosa with no histopathologic abnormality. - Negative for dysplasia or malignancy. COMMENT: Regarding specimen A: Sections demonstrate polypoid fragments of ulcer with focal injured colonic mucosa. A detached fragment of colonic mucosa with no significant histopathologic abnormality is also present. No viral cytopathic changes or infectious organisms are seen on HE stain. No dysplasia or malignancy is identified. Correlation with colonoscopic findings is recommended. As part of [facility]' Quality Improvement Program, this case was reviewed by another member of our pathology staff. NAL:emb:[id number] GROSS DESCRIPTION: PATIENT NAME: KAYLIE CORTES PATHOLOGY DATE OF : 72 REPORT #: [id number] PHYSICIAN: DI ROMERO PCP: STEPHANIE DORSEY MD REPORT IS CONFIDENTIAL AND NOT TO BE RELEASED WITHOUT AUTHORIZATION [facility] [address] [place], [place] [address] Signed Three specimens are received in three containers, labeled "TV." A. The specimen, labeled "TV, 1," and designated on the requisition "splenic flexure," is received in formalin and consists of three shannon soft tissue fragments with vegetative matter that measure 0.3 cm in greatest dimension. The specimen is entirely submitted in cassette (A1). B. The specimen, labeled "TV, 2," and designated on the requisition "hepatic flexure," is received in formalin and consists of one shannon soft tissue fragment that measures 0.3 cm in greatest dimension. The specimen is entirely submitted in cassette (B1). C. The specimen, labeled "TV, 3," and designated on the requisition "ileocecal valve," is received in formalin and consists of one shannon soft tissue fragment that measures 0.3 cm in greatest dimension. The specimen is entirely submitted in cassette (C1). AT (under the direct supervision of a pathologist) The Gross Description was prepared using a voice recognition system. The report was reviewed for accuracy; however, sound-alike word errors, addition and/or deletions may occur. If there is any question about this report, please contact Client Services. PERFORMING LABORATORY: The technical component was performed by [facility] [address] ([facility] Director: Sharmin Rm MD; CLIA# [id number]). [facility] [address] [address] (CLIA# [id number]). Diagnostician: Rosalie Moran MD Pathologist Electronically Signed 10/16/2019 Copies: ~ PATIENT NAME: KAYLIE CORTES SHIRA PATHOLOGY DATE OF : 72 REPORT #: [id number] PHYSICIAN: DI ROMERO PCP: STEPHANIE DORSEY MD REPORT IS CONFIDENTIAL AND NOT TO BE RELEASED WITHOUT AUTHORIZATION
== END 2019-10-12 09:14 | disposition home or self-care (01) ==
LOC: DS 06:00 → OPS 06:00 → DS 06:45 → OPS 06:45
PROVIDERS: Surgery
PROC: 0DBL8ZX Excision of Transverse Colon, Via Natural or Artificial Opening Endoscopic, Diagnostic (ICD-10-PCS; 2019-10-12)
PROC: 0DBC8ZZ Excision of Ileocecal Valve, Via Natural or Artificial Opening Endoscopic (ICD-10-PCS; principal; 2019-10-12 06:45)
DX: K63.3 Ulcer of intestine (principal); D12.3 Benign neoplasm of transverse colon; K57.30 Diverticulosis of large intestine without perforation or abscess without bleeding; F79 Unspecified intellectual disabilities; Z79.899 Other long term (current) drug therapy
CPT/HCPCS: 88305; J2704; J7121